=== PATIENT | female | born 1950 | race Caucasian/White ===

== ENCOUNTER → 2017-01-26 | Outpatient (CLI) | payer OTHER, MEDICARE | LOC: CIMAGING 13:04 | PROVIDERS: ATTEND Family Medicine | DX: M25.511 Pain in right shoulder (principal) | CPT/HCPCS: 73030-PO ==

== ENCOUNTER → 2017-05-07 | Outpatient (CLI) | payer OTHER, MEDICARE | LOC: FIMAGING 10:14 | PROVIDERS: ATTEND Family Medicine | DX: Z12.31 Encounter for screening mammogram for malignant neoplasm of breast (principal); Z13.820 Encounter for screening for osteoporosis; M85.80 Other specified disorders of bone density and structure, unspecified site | CPT/HCPCS: G0202 ==

== ENCOUNTER 2018-04-21 09:49 | Emergency (ER) | payer OTHER, MEDICARE ==
--- NOTE | 2018-04-21 10:22 | EDPHY ---
H & P Stated Complaint: COUGH, CONGESTION, ST SINCE SUNDAY Time Seen by Provider: 04/21/18 09:54 HPI/ROS: 68 yo F presents c/o nasal drainage, couh, cold symptoms. She states the cough is keeping her up at night. No fevers or chills she has been taking Zicam and alkaseltzer cold and flu. She has no history of chronic lung disease and no history of smoking. Review of systems General no fever no chills no weakness HEENT no eye pain no eye discharge. No eye redness, mild sore throat Respiratory positive cough, no shortness of breath Cardiac no chest pain, no peripheral edema GI no abdominal pain, no diarrhea, no constipation, no nausea, no vomiting no flank pain, no hematuria, no dysuria Musculoskeletal no myalgias, no joint pain Heme no easy bruising, no easy bleeding Endo no polyuria, no polydipsia Skin no rashes, no pruritus Neuro no syncope, no dizziness, no headaches Psych is no suicidal ideation, no homicidal ideation Source: Patient Exam Limitations: No limitations - Personal History Current Tetanus Diphtheria and Acellular Pertussis (TDAP): Yes - Medical/Surgical History Hx Asthma: No Hx Chronic Respiratory Disease: No Hx Diabetes: No Hx Cardiac Disease: No Hx Renal Disease: No Hx Cirrhosis: No Hx Alcoholism: No Hx HIV/AIDS: No Hx Splenectomy or Spleen Trauma: No Other PMH: tonsillectomy, dental surgery,Good health. rt toe surgery - Family History Significant Family History: No pertinent family hx - Social History Smoking Status: Never smoked Alcohol Use: Occasionally Drug Use: None - Physical Exam Exam: 68-year-old female Alert and oriented nontoxic appearance, no acute distress afebrile Atraumatic normocephalic Extraocular muscles intact, anicteric Nares mild yellowish discharge, left naris with mild turbinates swelling Oropharynx mild erythema no tonsillar swelling no exudate no uvular deviation, tolerating own secretions Neck supple no lymphadenopathy Lungs clear to auscultation bilaterally Heart regular rate and rhythm Abdomen normoactive bowel sounds soft nontender Extremities no cyanosis clubbing or edema Skin no rash Constitutional: Initial Vital Signs Temperature (C) 37.1 C 04/21/18 10:06 Heart Rate 69 04/21/18 10:06 Respiratory Rate 16 04/21/18 10:06 Blood Pressure 137/84 H 04/21/18 10:06 O2 Sat (%) 94 04/21/18 10:06 O2 Delivery Mode Room Air Allergies/Adverse Reactions: Penicillins Allergy (Verified 04/21/18 10:36) Home Medications: Medication Instructions Recorded Hormones 07/06/12 Hydrocodone/APAP 5/325 [Lavalette 1 tab PO Q4 PRN #20 tab 02/05/15 5/325 (*)] predniSONE 60 mg PO DAILY #15 tab 02/05/15 Hydrocodone/Acetaminophen [Lavalette 1 tab PO Q4H PRN #12 tab 02/08/15 5/325 (*)] Benzonatate [Tessalon Pearles (RX)] 200 mg PO Q8 PRN #24 cap 04/21/18 Medical Decision Making ED Course/Re-evaluation: Patient seen and evaluated for cough, nasal congestion Impression Cold, upper respiratory tract infection Plan Tessalon Perles Decongestant combined with expectorant, [id number] Follow-up with primary care physician Return for shortness of breath, fever or as needed. Differential Diagnosis: Differential diagnosis considered but not limited to: Viral syndrome, upper respiratory tract infection, bronchitis, pneumonia, seasonal allergies Departure - Departure Disposition: Home, Routine, Self-Care Clinical Impression: URI (upper respiratory infection) Condition: Good Instructions: Decongestant/Expectorant (By mouth), Upper Respiratory Infection (ED) Referrals: Patient,NotPresent [Primary Care Provider] - As per Instructions Prescriptions: Benzonatate [Tessalon Pearles (RX)] 200 mg PO Q8 PRN #24 cap PRN Reason: Cough, Moderate
[2018-04-21 10:30] VITALS: BP 137/84
== END 2018-04-21 10:34 | disposition home or self-care (01) ==
LOC: CED 09:49
DX: J06.9 Acute upper respiratory infection, unspecified (principal)

== ENCOUNTER → 2018-06-12 | Outpatient (CLI) | payer OTHER, MEDICARE | LOC: FIMAGING 14:02 | PROVIDERS: ATTEND Family Medicine | DX: Z12.31 Encounter for screening mammogram for malignant neoplasm of breast (principal) ==

== ENCOUNTER → 2018-07-12 | Outpatient (CLI) | payer OTHER, MEDICARE | LOC: CIMAGING 15:07 | PROVIDERS: ATTEND Family Medicine | DX: M79.604 Pain in right leg (principal) | CPT/HCPCS: 73590-PO ==